=== PATIENT | male | born 1985 | race Caucasian/White ===

== ENCOUNTER 2024-10-10 07:52 | Outpatient (CLI) | payer BC, SELFPAY | END 2024-10-10 07:53 | disposition home or self-care (01) | LOC: AMB 11-09 23:44 | PROVIDERS: PCP Family Medicine; Visit Provider Family Medicine | DX: T40.2X1A Poisoning by other opioids, accidental (unintentional), initial encounter (principal); Y92.009 Unspecified place in unspecified non-institutional (private) residence as the place of occurrence of the external cause | CPT/HCPCS: A0425; A0427 ==